=== PATIENT | female | born 1985 | race Caucasian/White ===

== ENCOUNTER 2020-01-23 13:22 | Outpatient (CLI) | payer SELFPAY ==
[~2020-01-23 13:22] MED LIST: ALBU18HF2 IH; CYCL-1 PO; IBUP-1984 PO; METH-360 PO; MOT200T PO; NAPR-56 PO; ZOLP10TA5 PO
== END 2020-01-23 23:59 | disposition home or self-care (01) ==
LOC: LAB 13:22
PROVIDERS: ATTEND Nurse Practitioner
DX: Z34.00 Encounter for supervision of normal first pregnancy, unspecified trimester (principal)
CPT/HCPCS: 36415; 84702

== ENCOUNTER 2020-01-27 15:49 | Outpatient (CLI) | payer MEDICAID | END 2020-01-27 23:59 | disposition home or self-care (01) | LOC: LAB 15:49 | PROVIDERS: ATTEND Nurse Practitioner | DX: Z34.00 Encounter for supervision of normal first pregnancy, unspecified trimester (principal) | CPT/HCPCS: 36415; 84702 ==

== ENCOUNTER 2024-06-06 12:28 | Emergency (ER) | payer MEDICAID, OTHER ==
[~2024-06-06] VITALS: Ht 167.6 cm; Wt 87.0 kg
[2024-06-06 12:32] VITALS: TEMP 98
[2024-06-06] MEDS ORDERED: BUPR1FIL3 SL ×2 (13:13→13:14)
[2024-06-06] MEDS ORDERED: buprenorphine/naloxone 8MG-2MG SUBlingual film SL SCH (13:15)
[2024-06-06] MEDS: buprenorphine/naloxone 8MG-2MG SUBlingual film SL ONE (13:27)
[2024-06-06 13:32] VITALS: BP 125/80; PULSE 65; RESP 16; O2SAT 96
== END 2024-06-06 13:37 | disposition home or self-care (01) ==
LOC: ER 12:29
DX: F19.20 Other psychoactive substance dependence, uncomplicated (principal); G43.909 Migraine, unspecified, not intractable, without status migrainosus; Z79.899 Other long term (current) drug therapy; Z79.1 Long term (current) use of non-steroidal anti-inflammatories (NSAID); Z56.0 Unemployment, unspecified; Z90.49 Acquired absence of other specified parts of digestive tract; Z76.0 Encounter for issue of repeat prescription
CPT/HCPCS: 99281